=== PATIENT | female | born 1930 | race Caucasian/White ===

== ENCOUNTER 2018-01-18 11:13 | Emergency (ER) | payer OTHER, MEDICARE ==
[2018-01-18 11:19] VITALS: BP 124/78; PULSE 91; TEMP 97.5; BMI 19.5
[2018-01-18] MEDS ORDERED: DIPHTH,PERTUSS(ACELL),TET 0.5 ML DISP.SYRIN IM ONE (11:40)
--- NOTE | 2018-01-18 11:47 | PDOC ---
History of Present Illness - General Chief Complaint: Laceration Stated Complaint: LACERATION ON RIGHT ELBOW Time Seen by Provider: 01/18/18 11:20 History Source: Patient Exam Limitations: No Limitations - History of Present Illness Initial Comments: 01/18/18 11:42 CHIEF COMPLAINT: "I cut my arm last night." HISTORY OF PRESENT ILLNESS: This is an 87-year-old woman who was at home last night. She bumped her right elbow against the wall and got a skin tear. She comes in now for evaluation of the wound. She did not fall. She did not injure her head. She denies any other injuries beyond the skin laceration on the lateral aspect of the right elbow. Immunization history: Last tetanus booster was many years ago. REVIEW OF SYSTEMS: No fever or chills No head injury No neck pain No chest pain, cough or shortness of breath No dizziness Past History - Past Medical History Allergies/Adverse Reactions: Allergies Allergy/AdvReac Type Severity Reaction Status Date / Time No Known Allergies Allergy Verified 01/18/18 11:16 Home Medications: Ambulatory Orders Clopidogrel Bisulfate [Plavix -] 75 mg PO Q2D 06/30/12 Metoprolol Succinate [Toprol Xl] 25 mg PO DAILY 06/30/12 Simvastatin [Zocor -] 20 mg PO HS 06/30/12 Multivitamins [Multivit ([facility] Formul[facility])] 1 tab PO DAILY 12/13/15 Cholecalciferol (Vitamin D3) [Vitamin D3] 0 unit PO DAILY 01/18/18 Cardiac Disorders: Yes (CAD, [place], MV STENOSIS) COPD: No GI Disorders: Yes (GERD) HTN: Yes Hypercholesterolemia: Yes - Surgical History Appendectomy: Yes - Immunization History Td Vaccination: No Immunization Up to Date: Yes - Suicide/Smoking/Psychosocial Hx Smoking Status: No Smoking History: Former smoker Have you smoked in the past 12 months: No Number of Cigarettes Smoked Daily: 0 If you are a former smoker, when did you quit?: 50 YRS AGO Cigars Per Day: 0 Information on smoking cessation initiated: No Hx Alcohol Use: No (social) Drug/Substance Use Hx: No Substance Use Type: None *Physical Exam - Vital Signs Last Vital Signs Temp Pulse Resp BP Pulse Ox 97.5 F L 91 H 18 124/78 98 01/18/18 11:15 01/18/18 11:15 01/18/18 11:15 01/18/18 11:15 01/18/18 11:15 - Physical Exam Comments: 01/18/18 11:43 GENERAL: The patient is awake, alert, and fully oriented, in no acute distress. HEAD: Normal with no signs of trauma. EYES: Pupils equal, round and reactive to light, extraocular movements intact, sclera anicteric, conjunctiva clear. EXTREMITIES: The right lateral elbow has a skin tear, with a small thin flap of skin hanging. The denuded area of skin is approximately 1 x 2 cm. NEUROLOGICAL: Normal speech, normal gait. PSYCH: Normal mood, normal affect. SKIN: Warm, Dry, normal turgor, no rashes or lesions noted beyond the skin tear to the right arm as noted above. Procedures - Laceration/Wound Repair Right Arm Progress: 01/18/18 11:45 The right arm has a skin tear, very superficial, approximately 1 x 2 cm over the right lateral elbow. The skin flap is in multiple pieces and was debridement off of the wound. Post-debridement the wound was cleansed with saline solution irrigation. Bacitracin ointment was applied with a dry sterile dressing and elastic bandage. Medical Decision Making - Medical Decision Making 01/18/18 11:46 87-year-old female bumped her right elbow along the wall yesterday in the evening. She sustained a skin tear. There was no fall no other injuries. On examination there is a small flap of thin, friable skin. The skin was debridement off the wound as it was not salvageable. The underlying denuded area was cleansed with saline irrigation, bacitracin ointment was applied after drying, and a bandage was applied. Tetanus booster was updated. No signs or symptoms of other injury or illness. Patient is stable for discharge. *DC/Admit/Observation/Transfer Diagnosis at time of Disposition: Skin tear of right upper arm without complication Qualifiers: Encounter type: initial encounter Qualified Code(s): S41.111A - Laceration without foreign body of right upper arm, initial encounter - Discharge Dispostion Disposition: HOME Condition at time of disposition: Stable Decision to Admit order: No - Referrals Referrals: Joel Garcia [Primary Care Provider] - 3 days - Patient Instructions Printed Discharge Instructions: DI for Minor Laceration Additional Instructions: Today you were evaluated for a skin tear on your right elbow. The wound was cleansed. Bacitracin and a bandage were applied. You were given a tetanus booster to update your tetanus. Watch for any signs of infection such as redness, pus, red streaks, or fever. You can see her doctor for a follow-up wound check in 3 days. Wash the wound gently and carefully with soap and water once a day starting on Saturday. Apply bacitracin ointment and a bandage. Return to the emergency department for any serious or persistent problems. - Post Discharge Activity
== END 2018-01-18 12:05 | disposition home or self-care (01) ==
LOC: FER 11:13 → SUPCPDRO 11:13 → FER 12:05
PROC: 3E0234Z Introduction of Serum, Toxoid and Vaccine into Muscle, Percutaneous Approach (ICD-10-PCS; principal; 2018-01-18)
DX: S41.111A Laceration without foreign body of right upper arm, initial encounter (principal); W22.01XA Walked into wall, initial encounter; Y93.89 Activity, other specified; Y92.9 Unspecified place or not applicable; Z87.891 Personal history of nicotine dependence; K21.9 Gastro-esophageal reflux disease without esophagitis; I10 Essential (primary) hypertension; E78.00 Pure hypercholesterolemia, unspecified
CPT/HCPCS: 90715; 99282-25

== ENCOUNTER 2019-05-26 18:39 | Emergency (ER) | payer OTHER, MEDICARE ==
[2019-05-26 18:46] VITALS: BP 147/89; PULSE 85; TEMP 97.9; BMI 19.5
[2019-05-26 20:30] LABS: BASO % 0.6 % (0-2.0); EOS % 0.2 % (0-4.5); HEMATOCRIT 43.5 % (32.4-45.2); HEMOGLOBIN 14.7 GM/dl (10.7-15.3); LYMPH % 9.5 % (8-40); MCH 30.7 pg (25.7-33.7); MCHC 33.7 g/dl (32.0-36.0); MEAN CELL VOLUME 91.1 fl (80-96); MEAN PLT VOLUME 10.7 fl (7.5-11.1); MONO % 7.5 % (3.8-10.2); NEUT % 82.2 % (42.8-82.8); PLATELET COUNT 190 K/MM3 (134-434); RBC 4.78 M/mm3 (3.60-5.2); WHITE BLOOD COUNT 6.3 K/mm3 (4.0-10.8)
[2019-05-26 20:39] LABS: INR 1.06 (0.82-1.09); PROTHROMBIN TIME (PATIENT) 11.8 SEC (10.2-13.0)
[2019-05-26 20:44] LABS: ALBUMIN 4.1 g/dl (3.4-5.0); BILIRUBIN,TOTAL 0.8 mg/dl (0.2-1); CALCIUM 9.8 mg/dl (8.5-10); CREATININE 0.8 mg/dl (0.55-1.3); POTASSIUM 4.3 mmol/L (3.5-5.1); TOT PROT 6.5 g/dl (6.4-8.2)
--- NOTE | 2019-05-26 21:08 | PDOC ---
History of Present Illness - General Chief Complaint: Weakness Stated Complaint: "I FEEL UNBALANCED" Time Seen by Provider: 05/26/19 19:23 - History of Present Illness Initial Comments: This 88-year-old woman with a history of HTN/CAD/hyperlipidemia/mitral valve stenosis/ bronchiectasis presents with several day history of increased lightheadedness. Patient states that she feels her gait seems unbalanced in recent days. She denies vertigo. She states that she has a "clogged" feeling in both ears during this time. She has had this constellation of symptoms in the past, having been seen here for evaluation and also having been evaluated by ear nose and throat doctor for this. She denies headache/difficulty in word recall/extremity or facial weakness. She has no shortness of breath/chest pain/ palpitations. She has been taking her medications as prescribed. Medications as noted below No known allergies No current smoking (quit many decades ago); no daily alcohol use Past History - Past Medical History Allergies/Adverse Reactions: Allergies Allergy/AdvReac Type Severity Reaction Status Date / Time No Known Allergies Allergy Verified 05/26/19 18:41 Home Medications: Ambulatory Orders Clopidogrel Bisulfate [Plavix -] 75 mg PO Q2D 06/30/12 Metoprolol Succinate [Toprol Xl] 25 mg PO DAILY 06/30/12 Simvastatin [Zocor -] 20 mg PO HS 06/30/12 Cholecalciferol (Vitamin D3) [Vitamin D3] 1,000 unit PO DAILY 01/18/18 Cardiac Disorders: Yes (CAD, [place], MV STENOSIS) COPD: No GI Disorders: Yes (GERD) HTN: Yes Hypercholesterolemia: Yes - Surgical History Appendectomy: Yes - Immunization History Td Vaccination: No Immunization Up to Date: Yes - Psycho Social/Smoking Cessation Hx Smoking Status: No Smoking History: Former smoker Have you smoked in the past 12 months: No Number of Cigarettes Smoked Daily: 0 If you are a former smoker, when did you quit?: 50 YRS AGO Cigars Per Day: 0 Information on smoking cessation initiated: No Hx Alcohol Use: No Drug/Substance Use Hx: No Substance Use Type: None Review of Systems - Review of Systems Able to Perform ROS?: Yes Comments:: 12 point review of systems is negative except for what is noted in the history of present illness *Physical Exam - Vital Signs Last Vital Signs Temp Pulse Resp BP Pulse Ox 97.9 F 85 18 147/89 97 05/26/19 18:40 05/26/19 18:40 05/26/19 18:40 05/26/19 18:40 05/26/19 18:40 - Physical Exam Comments: GENERAL: Elderly female, alert and oriented x3, in no acute distress HEAD: Normal with no signs of trauma. EYES: PERRLA, EOMI, sclera anicteric, conjunctiva clear. ENT: Ears normal with bilateral cerumen partially obstructing TM visualization, nares patent, oropharynx clear without exudates. Dry mucous membranes. NECK: Normal range of motion, supple without lymphadenopathy, JVD, or masses. LUNGS: Breath sounds equal,scattered expir fine rhonchi. No wheezes, . HEART:Regular rate and rhythm, normal S1 and S2, 2/6 sys m, rub or gallop. ABDOMEN:.normal bowel sounds No guarding,tenderness or rebound.No masses No distention. EXTREMITIES: Normal range of motion, no edema. No clubbing or cyanosis. No erythema, or tenderness. NEUROLOGICAL: Cranial nerves II through XII grossly intact. Normal speech. No pronator drift. Upper and lower extremity strength intact. Gait normal MUSCULOSKELETAL: Back non-tender to palpation, no CVA tenderness SKIN: Warm, Dry, normal turgor, no rashes or lesions noted. 12 lead EKG :NSR at 74 bpm, LAD, 1st degree AV block; no acute ST or T wave abnormalities; unchanged from EKG tracing dated 04/21/18 ED Treatment Course - LABORATORY CBC & Chemistry Diagram: 05/26/19 20:15 05/26/19 20:15 - ADDITIONAL ORDERS Additional order review: Laboratory Results 05/26/19 05/26/19 05/26/19 20:15 20:15 20:15 PT with INR 11.8 INR 1.06 PTT (Actin FS) Sodium 137 Potassium 4.3 Chloride 101 Carbon Dioxide 28 Anion Gap 8 BUN 26.0 H Creatinine 0.8 Est GFR (CKD-EPI)AfAm 75.76 Est GFR (CKD-EPI)NonAf 65.36 Random Glucose 93 Calcium 9.8 Total Bilirubin 0.8 AST 28 ALT 16 Alkaline Phosphatase 82 Creatine Kinase 77 Troponin I < 0.03 Total Protein 6.5 Albumin 4.1 Urine Color Urine Appearance Urine pH Urine Protein Urine Glucose (UA) Urine Ketones Urine Blood Urine Nitrite Urine Bilirubin Urine Urobilinogen Ur Leukocyte Esterase Urine RBC Urine WBC 05/26/19 05/26/19 20:15 20:15 PT with INR INR PTT (Actin FS) 30.0 Sodium Potassium Chloride Carbon Dioxide Anion Gap BUN Creatinine Est GFR (CKD-EPI)AfAm Est GFR (CKD-EPI)NonAf Random Glucose Calcium Total Bilirubin AST ALT Alkaline Phosphatase Creatine Kinase Troponin I Total Protein Albumin Urine Color Yellow Urine Appearance Clear Urine pH 6.0 Urine Protein Negative Urine Glucose (UA) Negative Urine Ketones Negative Urine Blood Trace-intact Urine Nitrite Negative Urine Bilirubin Negative Urine Urobilinogen 0.2 Ur Leukocyte Esterase Negative Urine RBC 2-5 Urine WBC 0-2 05/26/19 20:15 RBC 4.78 MCV 91.1 MCHC 33.7 RDW 14.0 MPV 10.7 Neutrophils % 82.2 Lymphocytes % 9.5 Monocytes % 7.5 Eosinophils % 0.2 Basophils % 0.6 Medical Decision Making - Medical Decision Making This 88-year-old woman with multiple medical problems presents with several day history of perceived gait imbalance; she also is complaining of bilateral ear pressure. Patient has had similar complaints intermittently for a few years. Previous diagnostic work-up has been reportedly negative. Exam as noted. She has no neurologic deficit and gait appears normal on exam. Bilateral ear canals contain some cerumen but no other abnormality. EKG performed and is unchanged from previous twelve-lead EKG tracing dated from last April. Noncontrast head CT performed: Some microvascular changes. No intracranial mass /bleed/acute CVA CBC, chemistry profile and troponin evaluated Laboratory evaluation essentially normal except for evidence of prerenal azotemia with BUN of 28 and creatinine of 0.8. Results discussed with the patient. She is able to walk around the emergency room without ataxia. She notes that symptoms have improved since earlier today. She is been recommended to follow-up with her PMD, Dr. Tompkins in the next 2 to 3 days. She should return to the ER if she has worsening of her symptoms but meanwhile take her medications as prescribed. She should also make an effort to increase her oral hydration She has never had a formal neurology evaluation for her imbalance symptoms: She will be given referral information for who is on-call for neurology service Discharge - Discharge Information Problems reviewed: Yes Clinical Impression/Diagnosis: Lightheadedness, Dehydration Condition: Stable Disposition: HOME - Follow up/Referral Referrals: Erik Acharya MD [Primary Care Provider] - Call tomorrow Zan Viera MD [Staff Physician] - - Patient Discharge Instructions Patient Printed Discharge Instructions: Dehydration Additional Instructions: drink plenty of water call Dr Acharya office in AM for followup within 2 days Call neurologist () office for follow-up as discussed Return to ER if you have more severe lightheadedness or develop new symptoms - Post Discharge Activity
--- NOTE | 2019-05-27 10:40 | EKG ---
Test Reason : Blood Pressure : / mmHG Vent. Rate : 071 BPM Atrial Rate : 071 BPM P-R Int : 216 ms QRS Dur : 076 ms QT Int : 392 ms P-R-T Axes : 072 270 040 degrees QTc Int : 425 ms SINUS RHYTHM WITH 1ST DEGREE A-V BLOCK WITH PREMATURE ATRIAL COMPLEXES WITH ABERRANT CONDUCTION LEFT AXIS DEVIATION ABNORMAL ECG WHEN COMPARED WITH ECG OF 21-APR-2018 13:38, ABERRANT CONDUCTION IS NOW PRESENT Confirmed by DELFIN ESTRADA, OLINDA ([id number]) on 05/27/2019 10:39:35 AM Referred By: DR WEBSTER Confirmed By:OLINDA LENZ MD
== END 2019-05-26 22:26 | disposition home or self-care (01) ==
LOC: FER 18:39 → SUPCPDRO 18:39 → FER 22:26
DX: E86.0 Dehydration (principal); R42 Dizziness and giddiness; Z87.891 Personal history of nicotine dependence; I10 Essential (primary) hypertension; K21.9 Gastro-esophageal reflux disease without esophagitis; I25.2 Old myocardial infarction; I25.10 Atherosclerotic heart disease of native coronary artery without angina pectoris; I05.0 Rheumatic mitral stenosis; E78.5 Hyperlipidemia, unspecified; J47.9 Bronchiectasis, uncomplicated
CPT/HCPCS: 36415; 70450-TC; 80053; 81003; 81015; 82550; 84484; 85025; 85610; 85730; 93005; 99283-25